=== PATIENT | male | born 1940 | race Caucasian/White ===

== ENCOUNTER 2018-06-21 09:57 | Emergency (ER) | payer MEDICARE, BC ==
[2018-06-21 11:58] VITALS: TEMP 96.3
[2018-06-21 12:27] VITALS: BP 121/66; PULSE 61; RESP 16; O2SAT 96
== END 2018-06-21 12:15 | disposition home or self-care (01) | DRG 566 ==
LOC: ED 09:57
DX: M21.372 Foot drop, left foot (principal)
CPT/HCPCS: 99283